=== PATIENT | male | born 1960 | race Caucasian/White ===

== ENCOUNTER 2024-06-26 16:00 | Emergency (ER) | payer OTHER, SELFPAY ==
[2024-06-26 16:07] VITALS: BP 100/67
--- NOTE | 2024-06-26 18:53 | ED.GENMED ---
History of Present Illness
General
Chief Complaint: Musculo-Skeletal Complaint
Source: patient
Time Seen by Provider: 06/26/24 18:32
History of Present Illness
History of Present Illness:
63-year-old male with past medical history of rheumatoid arthritis presenting to the emergency department for evaluation after he started with gradually worsening pain to his right hip that started earlier today, initially very mild but states now
severe and unable to put any weight onto his right leg. Describes the pain initially as a twinge in the lateral aspect of his hip but now radiating down his entirety of the leg associated with some mild paresthesia. Patient states that he has been
working with his medical charge entry specialist due to his RA, takes pain medicine intermittently but states really has not been prescribed much for pain before. 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
lifting or bending at the time when pain started. Patient denies any fevers or infectious symptoms. No other concerns
Past History
Past History
ED Past Medical History: Other (Rheumatoid arthritis)
ED Past Surgical History: None
Social History
Tobacco: Non-smoker
Alcohol: Occasional
Drug: None
Personal:
Living: with family
Employment: Employed
Review of Systems
Review of Systems
All Other Systems: ROS reviewed and negative except as documented in HPI and ROS
Phy Exam
Physical Exam
Physical Exam:
GENERAL: Alert , in no apparent distress but does appear quite uncomfortable with any attempted movement and even at rest is grimacing
HEAD: Normocephalic/atraumatic
EYE: conjunctiva clear
NECK: Supple
ENT: o/p clr, mmm.
NEUROLOGICAL: Alert and oriented, EHL intact bilaterally, patellar deep tendon reflexes intact bilaterally
SKIN: Warm and dry, skin intact.
MUSCULOSKELETAL: Right lower extremity: There is no obvious deformity, erythema, edema, ecchymosis, abrasions or lacerations. Patient unable to range of motion from the knee proximal secondary to pain actively or passively. Patient has intact and
equal pedal and tibial pulses bilateral. Cap refill is less than 2 seconds and sensation is grossly intact to light touch except for the medial aspect of the great toe patient does note a little bit of different sensation compared to the left,
PSYCH: Normal and appropriate interaction.
Scores
Heart Failure Risk
Heart Failure Risk Score: Not Applicable
Heart Score for Chest Pain Patients
STEMI patient?: Not applicable
Withdrawal Assessment of Alcohol
Withdrawal Assessment Completed?: Not applicable
Course
Orders/Labs/Results
Orders:
Orders
06/26/24 16:12
CR Hip - RT w/wo Pel 2-3 Vw* Urgent
Comment:
Reason For Exam: Pain
Include a pelvis x-ray?: Yes
06/26/24 18:41
Ibuprofen [Motrin] 800 mg PO NOW STA
Oxycodone/Acetaminophen [Percocet 5/325] 1 tablet PO NOW STA
06/26/24 20:48
Walker [Treatment- Walker] ONCE
Vital Signs
Initial and Last Documented VS:
Initial Vital Signs
Temp Pulse Resp BP Pulse Ox
98 F 75 18 100/67 99
06/26/24 16:07 06/26/24 16:07 06/26/24 16:07 06/26/24 16:07 06/26/24 16:07
Last Documented Vital Signs
Temp Pulse Resp BP Pulse Ox
98 F 76 20 110/70 98
06/26/24 16:07 06/26/24 20:40 06/26/24 20:40 06/26/24 20:40 06/26/24 21:00
MDM/Problems Addressed
Differential Diagnosis Includes:
Pathologic fracture, bursitis, tendinitis, initially given the patient's reported pain I did consider arterial occlusion however given his intact and equal pulses I have no suspicion for this, sciatica
MDM/Problems Addressed:
63-year-old male presenting to the ER for evaluation of moderate to severe pain to the hip which started earlier today as a mild twinge. Patient did not take anything for pain prior to arrival. Notes throughout the day has had progressively
increased difficulty ambulating and now unable to put any pressure onto the right leg. Will treat pain with p.o. Motrin and Percocet. X-ray of the right hip and pelvis ordered. Disposition pending
Chronic conditions affecting care: Other (Rheumatoid arthritis)
*Radiology
Radiology exam reviewed: preliminary read by ED provider (No acute fracture)
*Critical Care Note
Total Time (30-74mins, 75-104mins- exclusive of procedures): Not Applicable
Patient Management
Escalation/DeEscalation of care consider admission/obs:
Patient's x-ray without any fracture. He is did feel improved pain following oral medications. He was able to use walker prior to his discharge and feels comfortable being discharged home. Scripts for Percocet and a Medrol Dosepak were sent to
pharmacy. Advise close follow-up with medical charge entry specialist as well as provided with information for orthopedics. Family comfort patient home.
ED Attending Note
-
Portions of this chart may have been created with voice recognition software.� Occasional wrong word or��sound alike� substitutions may have occurred due to the inherent limitations of voice recognition software.
Discharge Plan
Departure
Patient Disposition: Home (Routine Discharge)
Date of Disposition: 06/26/24
Time of Disposition: 20:45
Patient with high blood pressure during this ER visit?: No
Discharge Problem:
Acute right hip pain
Instructions: Hip Pain ED
Prescriptions:
New
methylprednisolone [Medrol (Gideon)] 4 mg tablets,dose pack
4 mg PO DIRECTED Qty: 21 0RF
oxycodone-acetaminophen [Percocet] 5-325 mg tablet
1 tab PO Q6HPRN PRN (Reason: pain) Qty: 8 0RF
Referrals:
Benedict Padilla DO [Family Provider] -
John Pickett MD [Active] - (Ortho - Call as needed)
Interventions
Interventions:
*Risk Screen - Suicide Last Done: 06/26/24 16:07
*General Assessment Last Done: 06/26/24 16:07
*Neglect/Abuse Screening Last Done: 06/26/24 16:07
*ED- Fall Risk Assessment Last Done: 06/26/24 19:39
*ED COVID-19 Vaccine History Last Done: 06/26/24 16:07
*Nursing Disposition Last Done: 06/26/24 21:00
ED-Musculoskeletal Assessment Last Done: 06/26/24 19:39
Discharge Date and Time
Discharge Date/Time: 06/26/24 21:31
Print Language: [id number]
[2024-06-26] MEDS: MOTRIN 800 MG PO (19:30)
[2024-06-26] MEDS: PERCOCET 5/325 1 TABLET PO (19:31)
[2024-06-26 19:39] VITALS: BP 130/60; BMI 29.0
[2024-06-26 20:40] VITALS: BP 110/70
== END 2024-06-26 21:31 | disposition home or self-care (01) ==
LOC: EMR 16:00
PROVIDERS: EMERGENCY PHYSICIAN Emergency Medicine; FAMILY PHYSICIAN Family Medicine
DX: M25.551 Pain in right hip (principal); M06.9 Rheumatoid arthritis, unspecified; M16.11 Unilateral primary osteoarthritis, right hip
CPT/HCPCS: 99283; 73502